=== PATIENT | female | born 1960 | race Caucasian/White ===

== ENCOUNTER → 2017-12-01 | Outpatient (CLI) | payer OTHER ==
--- NOTE | 2017-12-01 15:35 | RADIOLOGY IMAGING REPORT ---
FACILITY: [facility] - [place] PATIENT NAME: ALAN PICKETT : [id number] MR: [id number] V: [id number] EXAM DATE: ORDERING PHYSICIAN: HARPREET DELANEY TECHNOLOGIST: Joi Sellers PROCEDURE:BILATERAL DIGITAL SCREENING MAMMOGRAM WITH CAD ASSISTED INTERPRETATION & 3d TOMOSYNTHESIS COMPARISON:11/09/16 with priors dating back to 07/18/2012 . INDICATIONS:screening FINDINGS: Breast parenchyma is heterogeneously dense. Stable oval benign appearing mass in the medial right breast. No new mammographic findings concerning for malignancy. There is no significant interval change. DIAGNOSTIC CATEGORY 2--BENIGN FINDING. RECOMMENDATIONS: ROUTINE MAMMOGRAM AND CLINICAL EVALUATION IN 1 YR. IMPRESSION: BIRADS 2: Benign finding. 1. Dictated by: Steve Zhang on 12/01/2017 at 13:54 Transcribed by: LASHLEL on 12/01/2017 at 14:42 Approved by: Steve Zhang on 12/01/2017 at 15:34 [facility]
== END ==
LOC: MAMO 00:19
PROVIDERS: ATTEND Student in an Organized Health Care Education/Training Program
DX: Z12.31 Encounter for screening mammogram for malignant neoplasm of breast (principal)
CPT/HCPCS: 77063; 77067

== ENCOUNTER → 2019-01-17 | Outpatient (CLI) | payer OTHER ==
--- NOTE | 2019-01-18 12:23 | RADIOLOGY IMAGING REPORT ---
FACILITY: [facility] PATIENT NAME: ALAN PICKETT : [id number] MR: [id number] V: [id number] EXAM DATE: [id number] ORDERING PHYSICIAN: HARPREET DELANEY TECHNOLOGIST: Romi Hercules PROCEDURE:BILATERAL DIGITAL SCREENING MAMMOGRAM WITH CAD ASSISTED INTERPRETATION & 3D TOMOSYNTHESIS COMPARISON:Prior mammograms 12/01/2017 , priors to 07/18/2012. INDICATIONS:SCREENING FINDINGS: Breast parenchyma is heterogeneously dense. There are no mammographic findings concerning for malignancy. No significant interval change. DIAGNOSTIC CATEGORY 1--NEGATIVE. RECOMMENDATIONS: ROUTINE MAMMOGRAM AND CLINICAL EVALUATION IN 1 YR. IMPRESSION: BIRADS 1: Negative. Dictated by: Steve Zhang on 01/18/2019 at 9:49 Transcribed by: VICKIE on 01/18/2019 at 11:22 Approved by: Steve Zhang on 01/18/2019 at 12:22 [facility]
== END ==
LOC: MAMO 00:48
PROVIDERS: ATTEND Student in an Organized Health Care Education/Training Program
DX: Z12.31 Encounter for screening mammogram for malignant neoplasm of breast (principal)
CPT/HCPCS: 77063; 77067